=== PATIENT | male | born 1970 | race Caucasian/White ===

== ENCOUNTER 2022-10-14 14:53 | Inpatient (IN) | payer MEDICAID, OTHER ==
[~2022-10-14] VITALS: Ht 185.4 cm; Wt 92.0 kg
[2022-10-14] MEDS ORDERED: ADENOSINE 6 MG/2 ML INJ IV ONE ×3 (15:01→15:15)
[2022-10-14] MEDS ORDERED: dilTIAZem 25 MG/5 ML VIAL IV ONE ×4 (15:01→16:45)
[2022-10-14] MEDS ORDERED: MIDAZOLAM HCL 5 MG/ML-1ML VIAL ONE (15:13)
[2022-10-14 15:15] VITALS: PULSE 230; RESP 26; O2SAT 98
[2022-10-14] MEDS ORDERED: ALBUMIN 25% 100 ML IV ONE (15:15)
[2022-10-14] MEDS ORDERED: SODIUM CHLORIDE 0.9% 500 ML IV ONE (15:15)
[2022-10-14] MEDS ORDERED: MIDAZOLAM HCL 5 MG/ML-1ML VIAL IV ONE (15:15)
[2022-10-14 15:23] LABS: Basophils # (auto) 0.1 10 ^3/uL (0-0.2); Basophils % (auto) 0.8 % (0.0-2.0); Eosinophils # (auto) 0.1 10 ^3/uL (0-0.8); Eosinophils % (auto) 0.8 % (0.0-7.0); Lymphocytes # (auto) 2.7 10 ^3/uL (0.4-5.4)
[2022-10-14 15:25] LABS: Hematocrit 54.3 % (41.0-53.0); Hemoglobin 18.1 g/dL (13.5-17.5); Lymphocytes % (auto) 29.1 % (10.0-50.0); Mean Corpuscular Hemoglobin 29.5 pg (28.0-32.0); Mean Corpuscular Hgb Conc. 33.3 g/dL (32.0-36.0); Mean Corpuscular Volume 88.5 fL (80.0-100.0); Monocytes # (auto) 0.7 10 ^3/uL (0-1.3); Monocytes % (auto) 7.1 % (0.0-12.0); Neutrophils # (auto) 5.7 10 ^3/uL (1.6-8.6); Neutrophils % (auto) 62.2 % (37.0-80.0); Nucleated Red Blood Cells % 0.4 %; Red Blood Cells 6.13 10^6/uL (4.5-5.90); Red Cell Distribution Width 15.9 % (11.8-14.3); White Blood Cell 9.2 10^3/uL (4.4-10.8)
[2022-10-14 15:45] LABS: Alanine Aminotransferase 51 U/L (7-40); Albumin 4.4 g/dL (3.2-4.8); Alkaline Phosphatase 84 U/L (46-116); Anion Gap 15.5 (5-15); Aspartate Aminotransferase 28 U/L (13-40); BUN/Creatinine Ratio 15.3 (10.0-20.0); Bilirubin, Total 1.5 mg/dL (0.2-1.0); Blood Urea Nitrogen 18 mg/dL (9-23); Calcium 9.6 mg/dL (8.5-10.1); Carbon Dioxide 18.5 mmol/L (20-30); Chloride 105 mmol/L (98-107); Glucose 200 mg/dL (74-106); Potassium 4.5 mmol/L (3.5-5.1); Sodium 139 mmol/L (136-145); Total Protein 6.7 g/dL (5.7-8.2)
[2022-10-14] MEDS ORDERED: ONDANSETRON HCL 4 MG/2 ML VIAL IV ONE (16:00)
[2022-10-14] MEDS ORDERED: ASPirin 81 mg TAB PO ONE (16:00)
[2022-10-14] MEDS ORDERED: MAGNESIUM SULFATE 1GM/100ML 100 ML IV ONE (16:00)
[2022-10-14] MEDS: LORazepam 2MG/ML-1ML VIAL IV ONE ×2 (16:16→16:55)
[2022-10-14 16:18] LABS: INR 1.48 (0.9-1.15); Partial Thromboplastin Time 36.8 SEC (24.5-34.5); Prothrombin Time 15.1 sec (9.3-11.8)
[2022-10-14] MEDS ORDERED: NITROGLYCERIN 0.4 MG SL TAB SL PRN (17:30)
[2022-10-14] MEDS ORDERED: ACETAMINOPHEN 325 MG TAB PO PRN (17:30)
[2022-10-14] MEDS ORDERED: MORPHINE SULFATE INJ 2 MG/ml SYRG IV PRN (17:30)
[2022-10-14] MEDS ORDERED: DIGO0.12 PO (18:15)
[2022-10-14] MEDS ORDERED: FLUO20CA90 PO (18:15)
[2022-10-14] MEDS ORDERED: ATOR20TA50 PO (18:15)
[2022-10-14] MEDS ORDERED: CANA100T PO (18:15)
[2022-10-14] MEDS ORDERED: SPIR25TA8 PO (18:15)
[2022-10-14] MEDS ORDERED: METO200T42 PO (18:15)
[2022-10-14] MEDS ORDERED: SACU1TAB7 PO (18:15)
[2022-10-14] MEDS ORDERED: GLYB5TAB8 PO (18:15)
[2022-10-14] MEDS ORDERED: ASPI-325 PO (18:15)
[2022-10-14] MEDS ORDERED: RIVA10TA2 PO (18:15)
[2022-10-14] MEDS ORDERED: DEXTROSE (50%) 50ML SYRG IV PRN (18:45)
[2022-10-14] MEDS ORDERED: ALBUTEROL SULF 2.5 MG/0.5ML(0.5%) NEB SOLN NEB PRN (18:45)
[2022-10-14] MEDS ORDERED: IPRATROPIUM BROM 0.5 MG/2.5ML INH SOL NEB PRN (18:45)
[2022-10-14 19:01] VITALS: BP 99/57; PULSE 123; RESP 22; TEMP 98.7; O2SAT 98
[2022-10-14] MEDS ORDERED: AZITHROMYCIN 500MG/ 250ML 250 ML IV ONE (19:15)
[2022-10-14 20:47] LABS: Urine Bacteria NONE SEEN /hpf (None Seen); Urine Blood Negative /uL (Negative); Urine Clarity Clear (Clear); Urine Color Colorless (Yellow); Urine Hyaline Cast FEW /lpf (0 - 2); Urine Mucus FEW (None Seen); Urine Protein, UAD 1+ (Negative); Urine Specific Gravity 1.006 (1.001-1.035); Urine Urobilinogen Normal (Negative); Urine WBC 2 /hpf (0 - 3)
[2022-10-14 20:53] LABS: Amphetamine Screen, Urine Neg (NEGATIVE); Barbiturate Scree,Urine Neg (NEGATIVE); Benzodiazephine Screen, Urine Neg (NEGATIVE); Cannabinoid Screen, Urine Neg (NEGATIVE); Cocaine Screen, Urine Neg (NEGATIVE); Opiate Scree,Urine Neg (NEGATIVE); Phencyclidine Screen, Urine Neg (NEGATIVE)
[2022-10-14 21:40] VITALS: PULSE 123; RESP 20; O2SAT 92
[2022-10-14] MEDS: SACUBITRIL-VALSARTAN 24mg/26mg TAB PO SCH (22:54)
[2022-10-14] MEDS: ALPRAZolam 0.5 MG TAB PO PRN (22:54)
[2022-10-14] MEDS: InsuLIN REG 1unit/0.01ml Soln (100units/ml) SC SCH (22:55)
[2022-10-14] MEDS: ACCU-CHEK COMFORT CURVE STRIP VI SCH (22:55)
[2022-10-15 05:08] LABS: Alanine Aminotransferase 37 U/L (7-40); Albumin 3.9 g/dL (3.2-4.8); Alkaline Phosphatase 65 U/L (46-116); Anion Gap 6.7 (5-15); Aspartate Aminotransferase 21 U/L (13-40); BUN/Creatinine Ratio 21.3 (10.0-20.0); Blood Urea Nitrogen 19 mg/dL (9-23); Calcium 8.8 mg/dL (8.5-10.1); Carbon Dioxide 22.3 mmol/L (20-30); Chloride 111 mmol/L (98-107); Cholesterol 110 mg/dL (< 200); Glucose 76 mg/dL (74-106); LDL Cholesterol 54 mg/dL (< 100); Potassium 4.3 mmol/L (3.5-5.1); Sodium 140 mmol/L (136-145); Triglycerides 65 mg/dL (< 150)
[2022-10-15 05:09] LABS: Bilirubin, Total 1.2 mg/dL (0.2-1.0); HDL Cholesterol 38 mg/dL (40-59); Total Protein 5.5 g/dL (5.7-8.2)
[2022-10-15 05:48] VITALS: O2SAT 99
[2022-10-15] MEDS: ACCU-CHEK COMFORT CURVE STRIP VI SCH ×4 (06:49→22:29)
[2022-10-15] MEDS: InsuLIN REG 1unit/0.01ml Soln (100units/ml) SC SCH ×4 (06:49→22:26)
[2022-10-15 07:54] LABS: Basophils # (auto) 0 10 ^3/uL (0-0.2); Basophils % (auto) 0.4 % (0.0-2.0); Eosinophils # (auto) 0 10 ^3/uL (0-0.8); Eosinophils % (auto) 0.4 % (0.0-7.0); Hematocrit 48.5 % (41.0-53.0); Hemoglobin 16.2 g/dL (13.5-17.5); Lymphocytes # (auto) 2.1 10 ^3/uL (0.4-5.4); Lymphocytes % (auto) 26.6 % (10.0-50.0); Mean Corpuscular Hemoglobin 29.2 pg (28.0-32.0); Mean Corpuscular Hgb Conc. 33.4 g/dL (32.0-36.0); Mean Corpuscular Volume 87.4 fL (80.0-100.0); Monocytes # (auto) 0.4 10 ^3/uL (0-1.3); Monocytes % (auto) 5.6 % (0.0-12.0); Neutrophils # (auto) 5.4 10 ^3/uL (1.6-8.6); Nucleated Red Blood Cells % 0.1 %; Red Blood Cells 5.55 10^6/uL (4.5-5.90); Red Cell Distribution Width 15.7 % (11.8-14.3)
[2022-10-15] MEDS ORDERED: dilTIAZem 25 MG/5 ML VIAL IV ONE (08:15)
[2022-10-15 08:24] VITALS: PULSE 120; RESP 18; O2SAT 100
[2022-10-15] MEDS: ASPirin-EC 81 mg tab PO SCH (09:17)
[2022-10-15] MEDS: SACUBITRIL-VALSARTAN 24mg/26mg TAB PO SCH ×2 (09:17→22:26)
[2022-10-15] MEDS: DIGOXIN 0.125 MG TAB PO SCH (09:17)
[2022-10-15] MEDS: ATORVASTATIN 20 MG TAB PO SCH (09:18)
[2022-10-15] MEDS: PANTOPRAZOLE 40 MG TAB PO SCH (09:18)
[2022-10-15] MEDS: RIVAROXABAN 20 MG TAB PO SCH (09:44)
[2022-10-15] MEDS: SPIRONOLACTONE 25 MG TAB PO SCH (09:45)
[2022-10-15] MEDS ORDERED: METOPROLOL SUCCINATE XL 50 MG TAB PO SCH (10:00)
[2022-10-15] MEDS ORDERED: RIVAROXABAN 10 MG TAB PO SCH (10:00)
[2022-10-15] MEDS ORDERED: DIGOXIN (250MCG/ML) 2 ML AMPULE IV ONE ×2 (10:00→15:00)
[2022-10-15] MEDS ORDERED: METOPROLOL TARTRATE 1MG/1ML-5ML VIAL IV PRN (10:00)
[2022-10-15 19:22] VITALS: PULSE 115; RESP 18; O2SAT 99
[2022-10-15] MEDS ORDERED: AZITHROMYCIN 500MG/ 250ML 250 ML IV SCH (20:00)
[2022-10-15] MEDS: ALPRAZolam 0.5 MG TAB PO PRN (20:13)
[2022-10-16] VITALS (10 sets, daily range): BP systolic 85–118; BP diastolic 55–78; PULSE 63–128; RESP 16–19; TEMP 97.8–98.4; O2SAT 94–98
[2022-10-16] MEDS: InsuLIN REG 1unit/0.01ml Soln (100units/ml) SC SCH ×4 (05:53→21:26)
[2022-10-16] MEDS: ACCU-CHEK COMFORT CURVE STRIP VI SCH ×4 (05:53→21:26)
[2022-10-16 08:50] LABS: Basophils # (auto) 0.1 10 ^3/uL (0-0.2); Basophils % (auto) 0.7 % (0.0-2.0); Eosinophils # (auto) 0.1 10 ^3/uL (0-0.8); Eosinophils % (auto) 1.7 % (0.0-7.0); Hematocrit 52.4 % (41.0-53.0); Hemoglobin 17.2 g/dL (13.5-17.5); Lymphocytes # (auto) 3.2 10 ^3/uL (0.4-5.4); Lymphocytes % (auto) 41.8 % (10.0-50.0); Mean Corpuscular Hemoglobin 28.8 pg (28.0-32.0); Mean Corpuscular Hgb Conc. 32.8 g/dL (32.0-36.0); Mean Corpuscular Volume 87.7 fL (80.0-100.0); Monocytes # (auto) 0.6 10 ^3/uL (0-1.3); Monocytes % (auto) 7.3 % (0.0-12.0); Neutrophils # (auto) 3.7 10 ^3/uL (1.6-8.6); Neutrophils % (auto) 48.5 % (37.0-80.0); Nucleated Red Blood Cells % 0.4 %; Red Blood Cells 5.98 10^6/uL (4.5-5.90); Red Cell Distribution Width 15.3 % (11.8-14.3); White Blood Cell 7.7 10^3/uL (4.4-10.8)
[2022-10-16 08:56] LABS: Chloride 108 mmol/L (98-107); Potassium 4.6 mmol/L (3.5-5.1); Sodium 141 mmol/L (136-145)
[2022-10-16 08:57] LABS: Anion Gap 6.5 (5-15); Carbon Dioxide 26.5 mmol/L (20-30)
[2022-10-16 08:58] LABS: Calcium 9.1 mg/dL (8.5-10.1)
[2022-10-16 09:02] LABS: BUN/Creatinine Ratio 15.6 (10.0-20.0); Blood Urea Nitrogen 17 mg/dL (9-23); Glucose 144 mg/dL (74-106)
[2022-10-16] MEDS ORDERED: MAGNESIUM SULFATE 1GM/100ML 100 ML IV ONE (09:15)
[2022-10-16] MEDS: SPIRONOLACTONE 25 MG TAB PO SCH (09:54)
[2022-10-16] MEDS: ASPirin-EC 81 mg tab PO SCH (09:54)
[2022-10-16] MEDS: ATORVASTATIN 20 MG TAB PO SCH (09:54)
[2022-10-16] MEDS: PANTOPRAZOLE 40 MG TAB PO SCH (09:54)
[2022-10-16] MEDS: RIVAROXABAN 20 MG TAB PO SCH (09:54)
[2022-10-16] MEDS: ALPRAZolam 0.5 MG TAB PO PRN ×2 (09:55→21:21)
[2022-10-16] MEDS: DIGOXIN 0.125 MG TAB PO SCH (09:55)
[2022-10-16] MEDS ORDERED: METOPROLOL SUCCINATE XL 50 MG TAB PO SCH (10:00)
[2022-10-16] MEDS: FUROSEMIDE 20 MG TAB PO SCH (19:02)
[2022-10-17] VITALS (7 sets, daily range): BP systolic 92–120; BP diastolic 65–79; PULSE 102–124; RESP 17–22; TEMP 97.8–98.1; O2SAT 92–96
[2022-10-17] MEDS: InsuLIN REG 1unit/0.01ml Soln (100units/ml) SC SCH ×4 (05:52→20:59)
[2022-10-17] MEDS: FUROSEMIDE 20 MG TAB PO SCH ×2 (05:52→17:32)
[2022-10-17] MEDS: ACCU-CHEK COMFORT CURVE STRIP VI SCH ×4 (05:53→20:51)
[2022-10-17 06:38] LABS: Basophils # (auto) 0.1 10 ^3/uL (0-0.2); Basophils % (auto) 0.7 % (0.0-2.0); Eosinophils # (auto) 0.2 10 ^3/uL (0-0.8); Hematocrit 52.3 % (41.0-53.0); Hemoglobin 17.2 g/dL (13.5-17.5); Lymphocytes # (auto) 3.5 10 ^3/uL (0.4-5.4); Lymphocytes % (auto) 43.6 % (10.0-50.0); Mean Corpuscular Hgb Conc. 32.9 g/dL (32.0-36.0); Mean Corpuscular Volume 88.1 fL (80.0-100.0); Monocytes # (auto) 0.6 10 ^3/uL (0-1.3); Neutrophils # (auto) 3.7 10 ^3/uL (1.6-8.6); Neutrophils % (auto) 46.7 % (37.0-80.0); Nucleated Red Blood Cells % 0.4 %; Red Blood Cells 5.94 10^6/uL (4.5-5.90); Red Cell Distribution Width 15.1 % (11.8-14.3)
[2022-10-17 06:46] LABS: Chloride 106 mmol/L (98-107); Potassium 4.4 mmol/L (3.5-5.1); Sodium 139 mmol/L (136-145)
[2022-10-17 06:47] LABS: Anion Gap 5.8 (5-15); Calcium 9.4 mg/dL (8.5-10.1); Carbon Dioxide 27.2 mmol/L (20-30)
[2022-10-17 06:52] LABS: Blood Urea Nitrogen 17 mg/dL (9-23); Glucose 111 mg/dL (74-106)
[2022-10-17 06:53] LABS: BUN/Creatinine Ratio 14.5 (10.0-20.0)
[2022-10-17] MEDS: DIGOXIN 0.125 MG TAB PO SCH (09:25)
[2022-10-17] MEDS: ATORVASTATIN 20 MG TAB PO SCH (09:26)
[2022-10-17] MEDS: METOPROLOL SUCCINATE XL 50 MG TAB PO SCH (09:27)
[2022-10-17] MEDS: AZITHROMYCIN 250 MG TAB PO SCH (09:27)
[2022-10-17] MEDS: SPIRONOLACTONE 25 MG TAB PO SCH (09:28)
[2022-10-17] MEDS: ASPirin-EC 81 mg tab PO SCH (09:28)
[2022-10-17] MEDS: ALPRAZolam 0.5 MG TAB PO PRN ×2 (09:35→20:51)
[2022-10-17] MEDS: SACUBITRIL-VALSARTAN 24mg/26mg TAB PO SCH ×2 (09:36→20:45)
[2022-10-17] MEDS: RIVAROXABAN 20 MG TAB PO SCH (10:15)
[2022-10-18 05:00] VITALS: BP 101/69; PULSE 122; RESP 18; TEMP 97.7; O2SAT 95
[2022-10-18] MEDS: FUROSEMIDE 20 MG TAB PO SCH ×2 (05:37→17:46)
[2022-10-18] MEDS: EMPAGLIFLOZIN 10 MG TAB PO SCH (05:38)
[2022-10-18] MEDS: InsuLIN REG 1unit/0.01ml Soln (100units/ml) SC SCH ×4 (05:45→22:03)
[2022-10-18] MEDS: ACCU-CHEK COMFORT CURVE STRIP VI SCH ×4 (05:57→22:01)
[2022-10-18 06:21] LABS: Basophils # (auto) 0.1 10 ^3/uL (0-0.2); Basophils % (auto) 0.6 % (0.0-2.0); Eosinophils # (auto) 0.1 10 ^3/uL (0-0.8); Eosinophils % (auto) 1.4 % (0.0-7.0); Hematocrit 50.3 % (41.0-53.0); Lymphocytes # (auto) 3.2 10 ^3/uL (0.4-5.4); Lymphocytes % (auto) 37.8 % (10.0-50.0); Mean Corpuscular Hemoglobin 29.2 pg (28.0-32.0); Mean Corpuscular Hgb Conc. 33.8 g/dL (32.0-36.0); Mean Corpuscular Volume 86.3 fL (80.0-100.0); Monocytes # (auto) 0.6 10 ^3/uL (0-1.3); Monocytes % (auto) 7.2 % (0.0-12.0); Neutrophils # (auto) 4.6 10 ^3/uL (1.6-8.6); Nucleated Red Blood Cells % 0.4 %; Red Blood Cells 5.82 10^6/uL (4.5-5.90); Red Cell Distribution Width 15.3 % (11.8-14.3); White Blood Cell 8.6 10^3/uL (4.4-10.8)
[2022-10-18 06:29] LABS: Calcium 9.7 mg/dL (8.7-10.4); Chloride 103 mmol/L (98-107); Potassium 4.5 mmol/L (3.5-5.1); Sodium 137 mmol/L (136-145)
[2022-10-18 06:30] LABS: Anion Gap 4.8 (5-15); Carbon Dioxide 29.2 mmol/L (20-30)
[2022-10-18 06:35] LABS: BUN/Creatinine Ratio 18.2 (10.0-20.0); Blood Urea Nitrogen 18 mg/dL (9-23); Glucose 171 mg/dL (74-106)
[2022-10-18] MEDS: RIVAROXABAN 20 MG TAB PO SCH (07:30)
[2022-10-18 08:00] VITALS: BP 129/82; PULSE 126; PULSE 128; RESP 18; TEMP 97.9; O2SAT 95
[2022-10-18 09:00] VITALS: BP 129/82; PULSE 126; RESP 18; TEMP 97.9; O2SAT 93
[2022-10-18] MEDS: ATORVASTATIN 20 MG TAB PO SCH (09:34)
[2022-10-18] MEDS: AZITHROMYCIN 250 MG TAB PO SCH (09:34)
[2022-10-18] MEDS: ASPirin-EC 81 mg tab PO SCH (09:35)
[2022-10-18] MEDS: SACUBITRIL-VALSARTAN 24mg/26mg TAB PO SCH ×2 (09:35→22:00)
[2022-10-18] MEDS: SPIRONOLACTONE 25 MG TAB PO SCH (09:35)
[2022-10-18] MEDS: METOPROLOL SUCCINATE XL 50 MG TAB PO SCH (09:35)
[2022-10-18] MEDS: DIGOXIN 0.125 MG TAB PO SCH (09:35)
[2022-10-18] MEDS: ALPRAZolam 0.5 MG TAB PO PRN ×2 (09:39→22:01)
[2022-10-18 13:00] VITALS: BP 100/63; PULSE 121; RESP 17; TEMP 98.1; O2SAT 100
[2022-10-18] MEDS ORDERED: ANGIOMAX 250 MG VIAL IV ONE (15:03)
[2022-10-18] MEDS ORDERED: HEPARIN SODIUM (PORCINE) 5000 UNITS/ML 1ML VIAL ONE (15:03)
[2022-10-18] MEDS ORDERED: MIDAZOLAM HCL 2MG/2ML 2ml VIAL (1mg/ml) ONE (15:03)
[2022-10-18] MEDS ORDERED: VERAPAMIL 2.5MG/ML INJ 2ML VIAL IV ONE (15:03)
[2022-10-18] MEDS ORDERED: fentaNYL CITRATE 100 MCG/2 ML VL ONE (15:03)
[2022-10-18] MEDS ORDERED: SODIUM CHL 0.9% 0 ML ONE (15:04)
[2022-10-18] MEDS ORDERED: LIDOCAINE 2%HCL (LOCAL ANESTH.) INJ 20ML MDV ONE (15:04)
[2022-10-18 20:00] VITALS: PULSE 100; PULSE 127; RESP 20; O2SAT 93
[2022-10-18 21:55] VITALS: BP 112/45; PULSE 100; RESP 20; TEMP 98; O2SAT 93
[2022-10-19 05:00] VITALS: BP 97/73; PULSE 99; RESP 18; TEMP 98.7; O2SAT 100
[2022-10-19] MEDS: FUROSEMIDE 20 MG TAB PO SCH (05:08)
[2022-10-19] MEDS: EMPAGLIFLOZIN 10 MG TAB PO SCH (07:13)
[2022-10-19] MEDS: ACCU-CHEK COMFORT CURVE STRIP VI SCH ×2 (07:15→12:29)
[2022-10-19] MEDS: InsuLIN REG 1unit/0.01ml Soln (100units/ml) SC SCH ×2 (07:16→12:29)
[2022-10-19 08:00] VITALS: PULSE 125; PULSE 128; RESP 20; O2SAT 93
[2022-10-19 08:25] LABS: Chloride 104 mmol/L (98-107); Potassium 4.7 mmol/L (3.5-5.1); Sodium 137 mmol/L (136-145)
[2022-10-19 08:26] LABS: Calcium 9.6 mg/dL (8.5-10.1)
[2022-10-19 08:28] LABS: Eosinophils # (auto) 0.1 10 ^3/uL (0-0.8); Hemoglobin 17.9 g/dL (13.5-17.5); Red Cell Distribution Width 15.2 % (11.8-14.3)
[2022-10-19 08:31] LABS: BUN/Creatinine Ratio 16.2 (10.0-20.0); Basophils # (auto) 0.1 10 ^3/uL (0-0.2); Basophils % (auto) 0.7 % (0.0-2.0); Blood Urea Nitrogen 17 mg/dL (9-23); Eosinophils % (auto) 1.2 % (0.0-7.0); Glucose 149 mg/dL (74-106); Hematocrit 54.5 % (41.0-53.0); Lymphocytes # (auto) 2.9 10 ^3/uL (0.4-5.4); Lymphocytes % (auto) 34.1 % (10.0-50.0); Mean Corpuscular Hemoglobin 28.4 pg (28.0-32.0); Mean Corpuscular Hgb Conc. 32.9 g/dL (32.0-36.0); Mean Corpuscular Volume 86.5 fL (80.0-100.0); Monocytes # (auto) 0.5 10 ^3/uL (0-1.3); Monocytes % (auto) 5.8 % (0.0-12.0); Neutrophils % (auto) 58.2 % (37.0-80.0); White Blood Cell 8.5 10^3/uL (4.4-10.8)
[2022-10-19 08:39] LABS: Nucleated Red Blood Cells % 10.7 %
[2022-10-19 09:00] VITALS: BP 113/83; PULSE 128; RESP 20; TEMP 98.2; O2SAT 93
[2022-10-19] MEDS: SACUBITRIL-VALSARTAN 24mg/26mg TAB PO SCH (09:57)
[2022-10-19] MEDS: ASPirin-EC 81 mg tab PO SCH (09:57)
[2022-10-19] MEDS: DIGOXIN 0.125 MG TAB PO SCH (09:57)
[2022-10-19] MEDS: AZITHROMYCIN 250 MG TAB PO SCH (09:58)
[2022-10-19] MEDS: METOPROLOL SUCCINATE XL 50 MG TAB PO SCH (09:58)
[2022-10-19] MEDS: RIVAROXABAN 20 MG TAB PO SCH (09:58)
[2022-10-19] MEDS: ATORVASTATIN 20 MG TAB PO SCH (09:58)
[2022-10-19] MEDS: SPIRONOLACTONE 25 MG TAB PO SCH (09:58)
[2022-10-19] MEDS ORDERED: SACU1TAB7 PO (10:09)
[2022-10-19] MEDS ORDERED: GLYB5TAB8 PO (10:09)
[2022-10-19] MEDS ORDERED: ASPI-325 PO (10:10)
[2022-10-19] MEDS ORDERED: FLUO20CA90 PO (10:10)
[2022-10-19] MEDS ORDERED: RIVA10TA2 PO (10:10)
[2022-10-19] MEDS ORDERED: ATOR20TA50 PO (10:10)
[2022-10-19] MEDS ORDERED: INSUINJ37 SC (10:10)
[2022-10-19] MEDS ORDERED: INSU-450 XX (10:10)
[2022-10-19] MEDS ORDERED: SPIR25TA8 PO (10:10)
[2022-10-19] MEDS ORDERED: CANA100T PO (10:10)
[2022-10-19] MEDS ORDERED: DIGO0.12 PO (10:10)
[2022-10-19] MEDS ORDERED: ALPR0.5T PO (10:42)
[2022-10-19] MEDS ORDERED: METO25TA93 PO (10:45)
[2022-10-19] MEDS: ALPRAZolam 0.5 MG TAB PO PRN (10:49)
[2022-10-19 12:43] LABS: Platelet Estimate Adequate
[2022-10-19 13:00] VITALS: BP 100/59; PULSE 76; RESP 18; TEMP 97.8; O2SAT 94
[2022-10-19 13:36] VITALS: BP 100/59; PULSE 129; RESP 18; TEMP 97.8; O2SAT 94
== END 2022-10-19 14:40 | disposition home or self-care (01) | DRG 192 ==
LOC: ER 14:53 → EDBD 14:53 → TELE 18:10 → TELE-WESTW 10-15 01:16 → TELE 10-15 02:37 → TELE-CENTR 10-16 03:20
PROVIDERS: ADMIT Internal Medicine; ATTEND Internal Medicine
PROC: 4A023N7 Measurement of Cardiac Sampling and Pressure, Left Heart, Percutaneous Approach (ICD-10-PCS; principal; 2022-10-18)
PROC: B2111ZZ Fluoroscopy of Multiple Coronary Arteries using Low Osmolar Contrast (ICD-10-PCS; 2022-10-18)
PROC: B2151ZZ Fluoroscopy of Left Heart using Low Osmolar Contrast (ICD-10-PCS; 2022-10-18)
DX: I48.0 Paroxysmal atrial fibrillation (principal); J96.01 Acute respiratory failure with hypoxia; I50.43 Acute on chronic combined systolic (congestive) and diastolic (congestive) heart failure; J15.6 Pneumonia due to other Gram-negative bacteria; I42.9 Cardiomyopathy, unspecified; D68.9 Coagulation defect, unspecified; I11.0 Hypertensive heart disease with heart failure; I47.1 Supraventricular tachycardia; I16.1 Hypertensive emergency; J98.11 Atelectasis; R74.01 Elevation of levels of liver transaminase levels; F41.9 Anxiety disorder, unspecified; I08.1 Rheumatic disorders of both mitral and tricuspid valves; E78.5 Hyperlipidemia, unspecified; I25.10 Atherosclerotic heart disease of native coronary artery without angina pectoris; E11.65 Type 2 diabetes mellitus with hyperglycemia; F12.10 Cannabis abuse, uncomplicated; Z79.01 Long term (current) use of anticoagulants
CPT/HCPCS: 36415; 71045; 80048; 80053; 80061; 80162; 80307; 81001; 82962; 83036; 83735; 83880; 84443; 84484; 85025; 85379; 85610; 85730; 93005; 93306; 93458; 96365; 96375; 99152; G0378; J0153; J1815; J2250; P9047

== ENCOUNTER 2023-01-07 09:11 | Day surgery (SDC) | payer MEDICAID ==
[~2023-01-07] VITALS: Ht 185.4 cm; Wt 99.8 kg
[~2023-01-07 09:11] MED LIST: ALPR0.5T PO; ASPI-325 PO; CANA100T PO; DIGO0.12 PO; FLUO20CA90 PO; METO25TA93 PO; RIVA10TA2 PO; SPIR25TA8 PO
[2023-01-07] MEDS ORDERED: fentaNYL CITRATE 100 MCG/2 ML VL IV ONE (09:45)
[2023-01-07] MEDS ORDERED: diphenhdrAMINE HCL 50 MG/1 ML VL IV ONE (09:45)
[2023-01-07] MEDS ORDERED: MIDAZOLAM HCL 2MG/2ML 2ml VIAL (1mg/ml) IV ONE (09:45)
[2023-01-07] MEDS ORDERED: LIDOCAINE VISCOUS 2% 15ML UD MT ONE (09:45)
[2023-01-07] MEDS ORDERED: MIDAZOLAM HCL 2MG/2ML 2ml VIAL (1mg/ml) ONE (10:17)
[2023-01-07] MEDS ORDERED: NALOXONE HCL 0.4 MG/ML VIAL ONE (10:28)
[2023-01-07] MEDS ORDERED: FLUMAZENIL 0.1 MG/ML INJ 10ML MDV IV ONE (10:28)
== END 2023-01-07 12:20 | disposition home or self-care (01) ==
LOC: CATH 09:11
PROVIDERS: ATTEND Internal Medicine
DX: I48.91 Unspecified atrial fibrillation (principal); I48.92 Unspecified atrial flutter; I08.3 Combined rheumatic disorders of mitral, aortic and tricuspid valves; I11.0 Hypertensive heart disease with heart failure; I50.9 Heart failure, unspecified
CPT/HCPCS: 92960; 93005; 93312; J1200; J2250; J3010; 99152

== ENCOUNTER 2024-07-07 14:08 | Emergency (ER) | payer MEDICAID ==
[~2024-07-07] VITALS: Ht 185.4 cm; Wt 112.9 kg
[~2024-07-07 14:08] MED LIST changes: +FLUO-470 PO; -FLUO20CA90 PO
--- NOTE | 2024-07-07 15:17 | ED.PDOC ---
History of Present Illness HPI Comments 53-year-old male who comes in with chief complaint of dysuria as well as blood in his urine. The patient states that he noticed it this morning so he came to the emergency department's for evaluation. The patient denies any vomiting or diarrhea. There has been no back pain, fever or chills. Chief Complaint: Urinary Time Seen by MD: 14:24 Primary Care Provider: NONE Reviewed Notes: Nurses Notes, Medications, Allergies (No allergies to medications) Allergies: Coded Allergies: No Known Drug Allergy (Verified Allergy, Unknown, 10/14/22) Home Meds Active Scripts Ciprofloxacin Hcl (Cipro) 500 Mg Tab, 1 TAB PO BID, #20 TAB Prov:TOSIN ARENAS MD 07/07/24 Metoprolol Succinate (Metoprolol Succinate Er) 25 Mg Tab, 1 TAB PO DAILY, #30 TAB 5 Refills Prov:JEFFREY VAZQUEZ MD 10/19/22 Alprazolam (Xanax) 0.5 Mg Tb, 1 TAB PO BID, #20 TAB Prov:JEFFREY VAZQUEZ MD 10/19/22 Rivaroxaban (Xarelto Tablet) 10 Mg Tb, 2 TAB PO DAILY, #60 TAB 5 Refills Prov:JEFFREY VAZQUEZ MD 10/19/22 Aspirin (Aspirin Low Dose) 81 Mg Tab, 1 TAB PO DAILY, #30 TAB 5 Refills Prov:JEFFREY VAZQUEZ MD 10/19/22 Fluoxetine HCl (Fluoxetine HCl) 20 Mg Cap, 1 CAP PO DAILY, #30 CAP 5 Refills Prov:JEFFREY VAZQUEZ MD 10/19/22 Spironolactone (Spironolactone) 25 Mg Tab, 0.5 TAB PO DAILY, #30 TAB 5 Refills Prov:JEFFREY VAZQUEZ MD 10/19/22 Digoxin (Digoxin) 125 Mcg Tab, 1 TAB PO DAILY, #30 TAB 5 Refills Prov:JEFFREY VAZQUEZ MD 10/19/22 Canagliflozin (INVOKANA) 100 Mg Tab, 1 TAB PO DAILY, #30 TAB Prov:JEFFREY VAZQUEZ MD 10/19/22 Information Source: Patient Mode of Arrival: Ambulatory Severity: Mild Timing: Hours Duration: Since onset Prehospital treatment: None Associated signs and symptoms Dysuria with hematuria Past Medical History PAST MEDICAL HISTORY: AFIB, DM, High Lipids Surgical History: Denies all surgeries Family History Family History: Reviewed,noncontributory to illness, No family hx of Cancer, No family hx of DM, No family hx of Heart stephania, No family hx of HTN, No family hx ofKidney stephania, No family hx of Liver stephania, No family hx of Lung stephania, No family hx of Stroke Social History Smoker: Non-Smoker Alcohol: Occasionally Drugs: Marijuana, Methamphetamine Lives In: Home Constitutional: denies: chills, diaphoresis, fatigue, fever, malaise, sweats, weakness, others EENTM: denies: blurred vision, double vision, ear bleeding, ear discharge, ear drainage, ear pain, ear ringing, eye pain, eye redness, hearing loss, mouth pain, mouth swelling, nasal discharge, nose bleeding, nose congestion, nose pain, photophobia, tearing, throat pain, throat swelling, voice changes, others Respiratory: denies: cough, hemoptysis, orthopnea, SOB at rest, shortness of breath, SOB with excertion, stridor, wheezing, others Cardiovascular: denies: chest pain, dizzy spells, diaphoresis, Dyspnea on exertion, edema, irregular heart beat, left arm pain, lightheadedness, palpitations, PND, syncope, others Gastrointestinal: denies: abdomen distended, abdominal pain, blood streaked bowels, constipated, diarrhea, dysphagia, difficulty swallowing, hematemesis, melena, nausea, poor appetite, poor fluid intake, rectal bleeding, rectal pain, vomiting, others Genitourinary: reports: dysuria, hematuria; denies: burning, flank pain, frequency, incontinence, penile discharge, penile sore, pain, testicle pain, testicle swelling, urgency, others Neurological: denies: dizziness, fainting, headache, left sided numbness, left sided weakness, numbness, paresthesia, pre-existing deficit, right sided numbness, right sided weakness, seizure, speech problems, tingling, tremors, weakness, others Musculoskeletal: denies: back pain, gout, joint pain, joint swelling, muscle pain, muscle stiffness, neck pain, others Integumetry: denies: bruises, change in color, change in hair/nails, dryness, laceration, lesions, lumps, rash, wounds, others Allergic/Immunocompromised: denies: Difficulty Healing, Frequent Infections, Hives, Itching, others Hematologic/Lymphatic: denies: anemia, blood clots, easy bleeding, easy brui sing, swollen glands, others Endocrine: denies: excessive hunger, excessive sweating, excessive thirst, ex cessive urination, flushing, intolerance to cold, intolerance to heat, unexplained weight gain, unexplained weight loss, others Psychiatric: denies: anxiety, bipolar disorder, depression, hopeless, panic disorder, schizophrenia, sleepless, suicidal, others Physical Exam General Appearance: No Apparent Distress HEENT: Normal ENT Inspection, Pharynx Normal, TMs Normal Neck: Full Range of Motion, Non-Tender, Normal, Normal Inspection Respiratory: Chest Non-Tender, Lungs Clear, No Accessory Muscle Use, No Respiratory Distress, Normal Breath Sounds Cardiovascular: No Edema, No JVD, No Murmur, No Gallop, Normal Peripheral Pulses, Regular Rate/Rhythm Breast Exam: Deferred Gastrointestinal: No Organomegaly, Non Tender, No Pulsatile Mass, Normal Bowel Sounds, Soft Genitalia: Deferred Pelvic: Deferred Rectal: Deferred Extremities: No calf tenderness, Normal capillary refill, Normal inspection, Normal range of motion, Non-tender, No pedal edema Musculoskeletal : Apperance: Normal Neurologic: Alert, numerical tool programmer II-XII nml as Tested, No Motor Deficits, Normal Affect, Normal Mood, No Sensory Deficits Cerebellar Function: Normal Reflexes: Normal Skin: Dry, Normal Color, Warm Lymphatic: No Adenopathy Was a procedure done? Was a procedure done?: No Differential Dx Considerations may include: UTI, penile trauma, kidney stones X-Ray, Labs, Meds, VS Vital Signs Date Time Temp Pulse Resp B/P (MAP) Pulse Ox O2 Delivery O2 Flow Rate FiO2 07/07/24 15:10 97.5 99 17 151/99 (116) 95 97.5 Lab Test 07/07/24 15:27 Range/Units Urine Color Light-red Yellow Urine Clarity Turbid H Clear Urine pH 6.5 5.0-9.0 Urine Specific Ball 1.007 1.001-1.035 Urine Protein 2+ H Negative Urine Ketones 1+ H Negative Urine Blood 3+ H Negative /uL Urine Nitrite Negative Negative Urine Bilirubin Negative Negative Urine Urobilinogen Normal Negative mg/dL Urine Leukocyte Esterase 3+ Negative /uL Urine RBC 988 0 - 3 /hpf Urine WBC Clumps Present None Seen /hpf Urine Microscopic WBC 221 H 0-3 /HPF Urine Squamous Epithelial Cells Few <5 /hpf Urine Bacteria Mod H None Seen /hpf Urine Glucose 4+ H Normal mg/dL Urine Opiates Screen Neg NEGATIVE Urine Fentanyl Screen Neg NEGATIVE Urine Barbiturates Screen Neg NEGATIVE Urine Phencyclidine Screen Neg NEGATIVE Urine Amphetamines Screen Pos NEGATIVE Urine Benzodiazepines Screen Neg NEGATIVE Urine Cocaine Screen Neg NEGATIVE Urine Cannabinoids Screen Pos NEGATIVE Urine test is positive for methamphetamines and marijuana The urine test is also positive for significant infection The patient is being placed on Cipro and will follow up with the primary care doctor The patient will return to the emergency department's the condition worsens. The patient's understands and agrees with the management. Time of 1ST Reevaluation: 15:17 Reevaluation 1ST: Improved Patient Education/Counseling: Diagnosis, Treatment, Prognosis, Need For Follow Up Family Education/Counseling: No Family Present Departure 1 Departure Time of Disposition: 16:10 Impression: Primary Impression: UTI (urinary tract infection) Qualified Codes: N30.01 - Acute cystitis with hematuria Disposition: HOME / SELF CARE / HOMELESS Condition: Fair e-Prescriptions Ciprofloxacin Hcl (Cipro) 500 Mg Tab 1 TAB PO BID, #20 TAB Prov: TOSIN ARENAS MD 07/07/24 Discharged With: Self Critical Care Note Critical Care Time?: No Stability Stability form required: No Heart Score Heart Score: Heart Score Response (Comments) Value History N/A 0 EKG N/A 0 Age N/A 0 Risk Factors N/A 0 Troponin N/A 0 Total 0 TOSIN ARENAS MD July 07, 2024 15:17
[2024-07-07 15:38] LABS: Urine Bacteria MOD /hpf (None Seen); Urine Blood 3+ /uL (Negative); Urine Clarity Turbid (Clear); Urine Color Light-Red (Yellow); Urine Protein, UAD 2+ (Negative); Urine Specific Gravity 1.007 (1.001-1.035); Urine Squamous Epithelial Cell FEW /hpf (<5); Urine Urobilinogen Normal (Negative); Urine WBC 221 /HPF (0-3); Urine WBC Clumps PRESENT /hpf (None Seen); Urine pH 6.5 (5.0-9.0)
[2024-07-07 15:48] LABS: Cannabinoid Screen, Urine Pos (NEGATIVE)
[2024-07-07 15:51] LABS: Amphetamine Screen, Urine Pos (NEGATIVE); Barbiturate Scree,Urine Neg (NEGATIVE); Benzodiazephine Screen, Urine Neg (NEGATIVE); Cocaine Screen, Urine Neg (NEGATIVE); Opiate Scree,Urine Neg (NEGATIVE); Phencyclidine Screen, Urine Neg (NEGATIVE)
[2024-07-07] MEDS ORDERED: CIPR-173 PO (15:51)
[2024-07-07 16:45] VITALS: BP 136/88; PULSE 100; RESP 16; TEMP 99; O2SAT 97
== END 2024-07-07 17:15 | disposition home or self-care (01) ==
LOC: ER 14:08
DX: N39.0 Urinary tract infection, site not specified (principal); F19.90 Other psychoactive substance use, unspecified, uncomplicated; E11.9 Type 2 diabetes mellitus without complications; I48.91 Unspecified atrial fibrillation; E78.5 Hyperlipidemia, unspecified; F10.90 Alcohol use, unspecified, uncomplicated; Y90.9 Presence of alcohol in blood, level not specified; Z79.82 Long term (current) use of aspirin; Z79.01 Long term (current) use of anticoagulants; Z79.84 Long term (current) use of oral hypoglycemic drugs; Z79.899 Other long term (current) drug therapy
CPT/HCPCS: 80307; 81001